=== PATIENT | male | born 2000 | race Caucasian/White ===

== ENCOUNTER 2022-08-12 11:48 | Emergency (ER) | payer OTHER ==
[~2022-08-12] VITALS: Ht 198.1 cm; Wt 76.2 kg
[2022-08-12] MEDS ORDERED: IPRATROPIUM 0.5MG/ALBUTEROL 2.5MG INH SOL UD 3ML (DUONEB) NEB ONE (13:10)
[2022-08-12] MEDS ORDERED: methylPREDNISolone 125MG 2ML VIAL IM ONE (13:10)
[2022-08-12] MEDS ORDERED: VENTAER INH (14:00)
[2022-08-12] MEDS ORDERED: PRED20TA PO (14:01)
[2022-08-12 14:17] VITALS: BP 125/69
== END 2022-08-12 14:19 | disposition home or self-care (01) ==
LOC: M ED 11:48
DX: J20.9 Acute bronchitis, unspecified (principal); F17.200 Nicotine dependence, unspecified, uncomplicated
CPT/HCPCS: 71046; 94640; 96372; 99283; J2930

== ENCOUNTER → 2025-04-02 | Outpatient (CLI) | payer OTHER ==
[~2025-04-02] MED LIST: ONDA-84 PO; PEPC1TAB5 PO; PRED20TA PO; VENTAER INH
[2025-04-02 12:40] VITALS: TEMP 97.7
[2025-04-02] MEDS: ceFAZolin SODIUM 2 GM in DEXTROSE 5% (D5W) ADV/MINI-BAG 50 ML IV ONE (13:20)
[2025-04-02] MEDS: NS (Normal Saline) 0.9% 1,000 ML IV SCH (13:21)
[2025-04-02] MEDS: MIDAZOLAM INJ 2 MG/2 ML VIAL IV PRN (14:12)
[2025-04-02] MEDS: LIDOCAINE 1% MDV 20 ML VIAL SC SCH (14:26)
[2025-04-02 15:27] VITALS: BP 122/69; O2SAT 100
== END ==
LOC: M IRPRO 12:29
PROVIDERS: ATTEND Student in an Organized Health Care Education/Training Program
DX: C81.90 Hodgkin lymphoma, unspecified, unspecified site (principal)
CPT/HCPCS: 36561; 76937; 99152; 99153; J0688; J1642; J2250; J3010